=== PATIENT | male | born 1980 | race Caucasian/White ===

== ENCOUNTER 2022-11-22 10:43 | Emergency (ER) | payer OTHER ==
[~2022-11-22] VITALS: Ht 172.7 cm; Wt 95.0 kg
[2022-11-22 12:10] LABS: BASO # 0.1 10^3/uL (0.0-0.2); BASO % 0.8 % (0.0-1.0); EOS # 0.7 10^3/uL (0.0-0.5); EOS % 8.9 % (0.0-3.0); HEMATOCRIT 54.5 % (42.0-52.0); HEMOGLOBIN 18.3 g/dl (13.5-17.5); LYMPH # 2.8 10^3/uL (1.5-5.0); MEAN CORPUSCULAR HEMOGLOBIN 30.1 pg (27.0-33.0); MEAN CORPUSCULAR HGB CONC 33.6 g/dl (32.0-36.5); MEAN CORPUSCULAR VOLUME 89.8 fl (80.0-96.0); MONO # 0.3 10^3/uL (0.0-0.8); MONO % 3.9 % (2.0-8.0); NEUTROPHILS # 3.9 10^3/uL (1.5-8.5); NEUTROPHILS % 49.6 % (36.0-66.0); PLATELET COUNT, AUTOMATED 254 10^3/uL (150-450); RED BLOOD COUNT 6.07 10^6/uL (4.30-6.10); WHITE BLOOD COUNT 7.9 10^3/uL (4.0-10.0)
[2022-11-22 12:31] LABS: ALBUMIN 3.4 G/DL (3.2-5.2); BILIRUBIN,DIRECT 0.1 MG/DL (<0.4); BILIRUBIN,TOTAL 0.4 MG/DL (0.3-1.2); TOTAL PROTEIN 6.5 G/DL (5.7-8.2)
[2022-11-22] MEDS ORDERED: ISOVUE-370 76% 100ML VIAL As Ordered ONE (13:45)
[2022-11-22] MEDS ORDERED: SUCR1SS PO (14:50)
[2022-11-22] MEDS ORDERED: AMOX500T PO (14:50)
[2022-11-22 15:00] VITALS: BP 128/78; TEMP 98.1; O2SAT 100
== END 2022-11-22 15:09 | disposition home or self-care (01) ==
LOC: M ED 10:43
DX: K21.9 Gastro-esophageal reflux disease without esophagitis (principal); E27.9 Disorder of adrenal gland, unspecified; R91.8 Other nonspecific abnormal finding of lung field; I10 Essential (primary) hypertension; F17.200 Nicotine dependence, unspecified, uncomplicated
CPT/HCPCS: 74177; 80047; 80076; 83690; 85025; 99284; Q9967